=== PATIENT | female | born 1980 | race Caucasian/White ===

== ENCOUNTER 2017-07-04 19:05 | Emergency (ER) | payer MEDICAID, SELFPAY ==
[2017-07-04 19:06] VITALS: BP 162/99; PULSE 114; RESP 18; TEMP 36.6; O2SAT 100; BMI 40.7
--- NOTE | 2017-07-04 19:44 | ED.VISSUMM ---
- ER Visit Summary Date of Service: 07/04/17 Chief Complaint: Atraumatic left lateral neck pain History of Present Illness: The patient is a 37 F history of pulmonary emboli post hysterectomy on Xarelto history of hypertension. No prior neck surgery. Said about a week ago she slipped on her neck awkwardly and since the following day she has had neck discomfort along the left trapezius. Denies any falls or trauma. No weakness of the upper or lower extremities. She denies any fever. Physical Examination: Well-appearing female. No acute distress. Vital signs are stable afebrile. H EENT exam unremarkable. Neck left trapezius tenderness consistent with a muscle spasm. C-spine nontender. Right side nontender. Normal flexion-extension and rotation. Lungs clear to auscultation bilaterally. Heart regular rhythm rate about 110 no murmur. Abdomen soft nontender. Moving all 4 extremities. Neurovascular intact. 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 No edema. Neurologically awake alert with no focal deficits. Test Results: None Emergency Department Course and Treatment: Patient be given 1 dose of p.o. Valium here and placed on Flexeril at home. She used to have a problem with narcotic addiction and wants no pain medications nor did I feel like she needs them. Treatment Plan: Flexeril twice daily. Hot shower warm bath. Massage to the muscles. Disposition: Discharge Impression: Left neck pain secondary to trapezius spasm This note was generated with [employer] dictation software. It may contain incorrect words, spelling, and punctuation that were not noted in review of the chart prior to signing ED Disposition - Plan for ED Patient: Chief Complaint: Other, Pain/Inj Referrals: Ilia Salgado MD [Primary Care Provider] -
--- NOTE | 2017-07-04 19:46 | ED.DEP ---
ED Disposition - Plan for ED Patient: Disposition: Home or Assisted Living Chief Complaint: Other, Pain/Inj Instructions: ED Spasm Muscle Prescriptions: Cyclobenzaprine [Flexeril] 10 mg PO TID #20 tab Referrals: Ilia Salgado MD [Primary Care Provider] - 1 Week if not improving Additional Instructions: Hot shower and warm bath to neck muscles. Massage. Flexeril twice a day for muscle relaxation.
[2017-07-04] MEDS: diazePAM 5 MG Tablet 10 MG PO (19:50)
== END 2017-07-04 19:54 | disposition home or self-care (01) ==
PROVIDERS: Emergency Provider Emergency Medicine; Family Provider Family Medicine; PCP Family Medicine
DX: M54.2 Cervicalgia (principal); M62.838 Other muscle spasm; I10 Essential (primary) hypertension; Z86.711 Personal history of pulmonary embolism; Z90.710 Acquired absence of both cervix and uterus; Z87.898 Personal history of other specified conditions; Z79.01 Long term (current) use of anticoagulants; Z79.899 Other long term (current) drug therapy; Z72.0 Tobacco use
CPT/HCPCS: 99283

== ENCOUNTER 2017-11-12 05:23 | Emergency (ER) | payer MEDICAID, SELFPAY ==
[2017-11-12 05:23] VITALS: BP 164/115; PULSE 104; RESP 18; TEMP 36.5; O2SAT 99; BMI 42.5
--- NOTE | 2017-11-12 05:46 | ED.DCSUM_ITS ---
- ER Visit Summary Date of Service: 11/12/17 Chief Complaint: Pain History of Present Illness: The patient is a 37 F with bilateral foot pain, worse on the left. The patient works at [employer] and is on her feet for about 10 hours a day. She had this pain in the past and was told she had a pinched nerve. She was treated with anti-inflammatories and steroids in the past, and had good relief of her symptoms. She denies any other injuries or complaints. Physical Examination: Vital signs unremarkable except for hypertension. Afebrile. Alert and oriented. No acute distress. Left plantar foot is tender to palpation near the base of the second toe. No palpable masses or deformities. No pain over the plantar fascia. Heel nontender. The remainder of the foot unremarkable. Neurovascularly intact distally. Test Results: None indicated Emergency Department Course and Treatment: Patient treated with naproxen and prednisone. Follow-up with her doctor. Return for any new or worsening issues. Treatment Plan: As above Disposition: Discharged Impression: 1. Left foot pain This note was generated with [employer] dictation software. It may contain incorrect words, spelling, and punctuation that were not noted in review of the chart prior to signing ED Disposition - Plan for ED Patient: Chief Complaint: Lower Extremity Injury Referrals: Ilia Salgado MD [Primary Care Provider] -
--- NOTE | 2017-11-12 05:46 | ED.DEP ---
ED Disposition - Plan for ED Patient: Chief Complaint: Lower Extremity Injury Instructions: ED RICE Prescriptions: Prednisone [Deltasone] 40 mg PO DAILY #10 tab Naproxen [Naprosyn] 500 mg PO BID #14 tab Referrals: Ilia Salgado MD [Primary Care Provider] -
[2017-11-12] MEDS: predniSONE 20 MG Tablet 40 MG PO (06:00)
[2017-11-12] MEDS: Naproxen 500 MG Tablet PO (06:00)
[2017-11-12 06:01] VITALS: RESP 16
== END 2017-11-12 06:03 | disposition home or self-care (01) ==
LOC: ED 05:57
PROVIDERS: Emergency Provider Emergency Medicine; Family Provider Family Medicine; PCP Family Medicine
DX: M25.572 Pain in left ankle and joints of left foot (principal); M25.571 Pain in right ankle and joints of right foot; I10 Essential (primary) hypertension; G25.81 Restless legs syndrome; Z86.718 Personal history of other venous thrombosis and embolism; Z90.710 Acquired absence of both cervix and uterus; Z79.899 Other long term (current) drug therapy; Z72.0 Tobacco use
CPT/HCPCS: 99283